=== PATIENT | female | born 1995 | race African-American/Black ===

== ENCOUNTER 2021-09-25 11:07 | Inpatient (IN) | payer OTHER ==
[2021-09-25] MEDS ORDERED: NICOTINE 10 MG CARTRIDGE (INHALER) IH PRN (11:31)
[2021-09-25] MEDS ORDERED: MAGNESIUM CITRATE 300 ML BOTTLE PO PRN (11:31)
[2021-09-25] MEDS ORDERED: ACETAMINOPHEN 325 MG TABLET (FP) PO PRN (11:31)
[2021-09-25] MEDS ORDERED: MAGNESIUM HYDROX 2400MG/30ML ORAL SUSPENSION 30 ML CUP PO PRN (11:31)
[2021-09-25] MEDS ORDERED: DICYCLOMINE HCL 10 MG CAPSULE PO PRN (11:31)
[2021-09-25] MEDS ORDERED: MAG HYDROX/AL HYDROX/SIMETH 30 ML UNIT-DOSE CUP PO PRN (11:31)
[2021-09-25] MEDS ORDERED: BENZOCAINE/MENTHOL (CHLORASEPTIC ) LOZENGE MM PRN (11:31)
[2021-09-25] MEDS ORDERED: LOPERAMIDE HCL 2 MG CAPSULE PO PRN (11:31)
[2021-09-25] MEDS ORDERED: ONDANSETRON *ODT* 4 MG TABLET SL PRN (11:31)
[2021-09-25] MEDS ORDERED: IBUPROFEN 400 MG TABLET (FP) PO PRN (11:31)
[2021-09-25] MEDS ORDERED: BISMUTH SUBSALICYLATE 262 MG/15 ML BTL PO PRN (11:31)
[2021-09-25 12:17] VITALS: BMI 23.0
[2021-09-25] MEDS: chlordiazePOXIDE HCL 25 MG CAPSULE PO PRN (14:28)
[2021-09-25] MEDS: hydrOXYzine PAMOATE 25 MG CAPSULE (FP) PO SCH ×3 (14:28→22:56)
[2021-09-25] MEDS: PRENATAL VITAMINS W/ FOLIC ACID TABLET (FP) PO SCH (14:28)
[2021-09-25] MEDS: METHOCARBAMOL 500 MG TABLET PO PRN (14:28)
[2021-09-25 15:00] LABS: HEMATOCRIT 35.6 % (32.4-45.2); MCHC 30.9 g/dl (32.0-36.0); MEAN CELL VOLUME 63.5 fl (80-96); MEAN PLT VOLUME 8.8 fl (7.5-11.1); PLATELET COUNT 348 10^3/uL (134-434); RBC 5.61 M/mm3 (3.60-5.2); RDW 16.1 % (11.6-15.6); WHITE BLOOD COUNT 10.6 K/mm3 (4.0-10.0)
[2021-09-25 15:03] LABS: MCH 19.6 pg (25.7-33.7)
[2021-09-25 15:14] LABS: BLOOD UREA NITROGEN 6.6 mg/dL (7-18); CALCIUM 9.2 mg/dL (8.5-10.1)
[2021-09-25 15:17] LABS: CREATININE 0.7 mg/dL (0.55-1.3)
[2021-09-25 15:19] LABS: BILIRUBIN,TOTAL 0.7 mg/dL (0.2-1); TOT PROT 8.1 g/dl (6.4-8.2)
[2021-09-25] MEDS: chlordiazePOXIDE HCL 25 MG CAPSULE PO SCH ×2 (19:34→22:06)
[2021-09-25] MEDS: MELATONIN 5 MG TABLETS PO SCH (22:55)
[2021-09-25] MEDS: THIAMINE HCL 100 MG TABLET (FP) PO SCH (22:55)
[2021-09-25] MEDS: levETIRAcetam XR 500 MG TAB PO SCH (22:56)
[2021-09-26] MEDS: chlordiazePOXIDE HCL 25 MG CAPSULE PO SCH ×4 (05:25→22:48)
[2021-09-26] MEDS: hydrOXYzine PAMOATE 25 MG CAPSULE (FP) PO SCH ×5 (05:25→21:57)
[2021-09-26] MEDS: PRENATAL VITAMINS W/ FOLIC ACID TABLET (FP) PO SCH (10:13)
[2021-09-26] MEDS: METHOCARBAMOL 500 MG TABLET PO PRN (10:13)
[2021-09-26] MEDS: MELATONIN 5 MG TABLETS PO SCH (21:56)
[2021-09-26] MEDS: THIAMINE HCL 100 MG TABLET (FP) PO SCH (21:56)
[2021-09-26] MEDS: levETIRAcetam XR 500 MG TAB PO SCH (21:57)
[2021-09-27] MEDS: chlordiazePOXIDE HCL 25 MG CAPSULE PO SCH ×4 (05:28→22:14)
[2021-09-27] MEDS: hydrOXYzine PAMOATE 25 MG CAPSULE (FP) PO SCH ×5 (05:28→22:15)
[2021-09-27] MEDS: PRENATAL VITAMINS W/ FOLIC ACID TABLET (FP) PO SCH (10:18)
[2021-09-27] MEDS: FERROUS SO4 325 MG TABLET (FP) PO SCH (10:18)
[2021-09-27] MEDS ORDERED: DICYCLOMINE HCL 10 MG CAPSULE PO ONE (10:30)
[2021-09-27 14:08] LABS: SARS-CoV-2 NAA Not Detected (Not Detected)
[2021-09-27] MEDS: chlordiazePOXIDE HCL 25 MG CAPSULE PO PRN (14:10)
[2021-09-27 19:20] LABS: PH,URINE 7.5 (5.0-8.0); URINE APPEARANCE CLEAR; URINE BILIRUBIN NEGATIVE (NEGATIVE); URINE COLOR YELLOW; URINE GLUCOSE (UA) NEGATIVE (NEGATIVE); URINE KETONE NEGATIVE (NEGATIVE); URINE LEUK ESTERASE NEGATIVE (NEGATIVE); URINE NITRITE NEGATIVE (NEGATIVE); URINE PROTEIN NEGATIVE (NEGATIVE); URINE UROBILINOGEN 0.2 mg/dL (0.2-1.0)
[2021-09-27 19:22] LABS: EPI CELLS 22 /uL (0-25.1); HYALINE CASTS 1 /uL (0-3.1); URINE BACTERIA 328 /uL (0-1359); URINE RBC 1 /uL (0-23.9); URINE WBC 7 /uL (0-25.8)
[2021-09-27] MEDS: THIAMINE HCL 100 MG TABLET (FP) PO SCH (22:15)
[2021-09-27] MEDS: MELATONIN 5 MG TABLETS PO SCH (22:15)
[2021-09-27] MEDS: levETIRAcetam XR 500 MG TAB PO SCH (22:15)
[2021-09-28] MEDS ORDERED: chlordiazePOXIDE HCL 10 MG CAPSULE PO PRN
[2021-09-28] MEDS: hydrOXYzine PAMOATE 25 MG CAPSULE (FP) PO SCH ×5 (06:03→22:40)
[2021-09-28] MEDS: chlordiazePOXIDE HCL 10 MG CAPSULE PO SCH ×4 (06:03→22:40)
[2021-09-28] MEDS: ACETAMINOPHEN 325 MG TABLET (FP) PO PRN (06:05)
[2021-09-28] MEDS: PRENATAL VITAMINS W/ FOLIC ACID TABLET (FP) PO SCH (10:19)
[2021-09-28] MEDS: FERROUS SO4 325 MG TABLET (FP) PO SCH (10:20)
[2021-09-28] MEDS ORDERED: levETIRAcetam XR 500 MG TAB PO ONE (18:15)
[2021-09-28] MEDS ORDERED: PYRIDOXINE HCL (B-6) 50 MG TABLET (FP) PO SCH (22:00)
[2021-09-28] MEDS: THIAMINE HCL 100 MG TABLET (FP) PO SCH (22:39)
[2021-09-28] MEDS: levETIRAcetam XR 500 MG TAB PO SCH (22:40)
[2021-09-28] MEDS: MELATONIN 5 MG TABLETS PO SCH (22:40)
[2021-09-29] MEDS ORDERED: chlordiazePOXIDE HCL 10 MG CAPSULE PO SCH (05:00)
[2021-09-29] MEDS: hydrOXYzine PAMOATE 25 MG CAPSULE (FP) PO SCH (05:24)
[2021-09-29] MEDS: ACETAMINOPHEN 325 MG TABLET (FP) PO PRN (06:28)
[2021-09-29] MEDS ORDERED: chlordiazePOXIDE HCL 10 MG CAPSULE PO ONE (09:30)
[2021-09-29 09:35] VITALS: BP 125/71; PULSE 91; TEMP 97.1
[2021-09-30] MEDS ORDERED: chlordiazePOXIDE HCL 10 MG CAPSULE PO ONE (05:00)
== END 2021-09-29 09:58 | disposition home or self-care (01) | DRG 897 ==
LOC: YASAS 11:07 → Y6N 13:50
PROVIDERS: ADMIT Allergy & Immunology; ATTEND Allergy & Immunology
PROC: HZ2ZZZZ Detoxification Services for Substance Abuse Treatment (ICD-10-PCS; principal; 2021-09-25)
DX: F10.230 Alcohol dependence with withdrawal, uncomplicated (principal); F14.20 Cocaine dependence, uncomplicated; F12.20 Cannabis dependence, uncomplicated; F17.210 Nicotine dependence, cigarettes, uncomplicated; G40.909 Epilepsy, unspecified, not intractable, without status epilepticus
CPT/HCPCS: 36415; 80053; 80177; 81003; 81025; 82962; 85027; 86780; 87811; 93005; 93010; C9803-CS; U0003; U0005

== ENCOUNTER 2023-12-12 02:47 | Inpatient (IN) | payer OTHER ==
[2023-12-12 03:35] VITALS: BMI 23.5
[2023-12-12] MEDS ORDERED: MAGNESIUM HYDROX 2400MG/30ML ORAL SUSPENSION 30 ML CUP PO PRN (04:19)
[2023-12-12] MEDS ORDERED: BENZONATATE 200 MG CAPSULE PO PRN (04:19)
[2023-12-12] MEDS ORDERED: LOPERAMIDE HCL 2 MG CAPSULE PO PRN (04:19)
[2023-12-12] MEDS ORDERED: BISMUTH SUBSALICYLATE 524 MG/30 ML PO PRN (04:19)
[2023-12-12] MEDS ORDERED: POLYETHYLENE GLYCOL (HEALTHYLAX) 3350 17 GM PACKET PO PRN (04:19)
[2023-12-12] MEDS ORDERED: guaiFENesin 600 MG TABLET.ER (FP) PO PRN (04:19)
[2023-12-12] MEDS ORDERED: ONDANSETRON *ODT* 4 MG TABLET SL PRN (04:19)
[2023-12-12] MEDS ORDERED: BENZOCAINE/MENTHOL (CHLORASEPTIC ) LOZENGE MM PRN (04:19)
[2023-12-12] MEDS ORDERED: DICYCLOMINE HCL 10 MG CAPSULE PO PRN (04:19)
[2023-12-12] MEDS ORDERED: NALOXONE (NARCAN) HCL 4 MG/0.1 ML SPRAY NS PRN (04:19)
[2023-12-12] MEDS ORDERED: ACETAMINOPHEN 325 MG TABLET (FP) PO PRN (04:19)
[2023-12-12] MEDS ORDERED: NALOXONE HCL 0.4 MG/ML VIAL IM PRN (04:19)
[2023-12-12] MEDS ORDERED: MAG HYDROX/AL HYDROX/SIMETH 30 ML UNIT-DOSE CUP PO PRN (04:19)
[2023-12-12] MEDS ORDERED: cloNIDine HCL 0.1 MG TABLET ONE (07:33)
[2023-12-12] MEDS: cloNIDine HCL 0.1 MG TABLET PO ONE (07:34)
[2023-12-12] MEDS: IBUPROFEN 600 MG TABLET (FP) PO PRN (07:36)
[2023-12-12] MEDS ORDERED: IBUPROFEN 600 MG TABLET (FP) PO ONE (07:36)
[2023-12-12] MEDS ORDERED: levETIRAcetam 500 MG TABLET (FP) PO ONE (09:37)
[2023-12-12] MEDS ORDERED: PRENATAL VITAMINS W/ FOLIC ACID TABLET (FP) PO ONE (09:37)
[2023-12-12] MEDS: levETIRAcetam 500 MG TABLET (FP) PO SCH (09:44)
[2023-12-12] MEDS: PRENATAL VITAMINS W/ FOLIC ACID TABLET (FP) PO SCH (09:44)
[2023-12-12] MEDS: THIAMINE 100 MG TABLET PO SCH (21:28)
[2023-12-12] MEDS: MELATONIN 5 MG TABLETS PO SCH (21:28)
[2023-12-13 12:06] LABS: HEMATOCRIT 32.8 % (32.4-45.2); HEMOGLOBIN 10.2 GM/dL (10.7-15.3); MCH 20.5 pg (25.7-33.7); MCHC 31.1 g/dl (32.0-36.0); MEAN PLT VOLUME 8.3 fl (7.5-11.1); PLATELET COUNT 428 10^3/uL (134-434); POTASSIUM 4.2 mmol/L (3.5-5.1); RBC 4.96 M/mm3 (3.60-5.2); RDW 15.9 % (11.6-15.6); WHITE BLOOD COUNT 5.6 K/mm3 (4.0-10.0)
[2023-12-13 12:14] LABS: ALBUMIN 3.3 g/dl (3.4-5.0); BLOOD UREA NITROGEN 6.2 mg/dL (7-18); CALCIUM 8.9 mg/dL (8.5-10.1)
[2023-12-13 12:17] LABS: CREATININE 0.6 mg/dL (0.55-1.3)
[2023-12-13 12:18] LABS: TOT PROT 7.8 g/dl (6.4-8.2)
[2023-12-13 12:20] LABS: BILIRUBIN,TOTAL 0.3 mg/dL (0.2-1)
[2023-12-14] MEDS: METHOCARBAMOL 500 MG TABLET PO PRN (06:06)
[2023-12-14] MEDS: hydrOXYzine PAMOATE 25 MG CAPSULE (FP) PO PRN (06:06)
[2023-12-14] MEDS: BENZOCAINE 20 % GEL TUBE MM PRN (13:36)
[2023-12-15] MEDS: IBUPROFEN 400 MG TABLET (FP) PO PRN (19:06)
[2023-12-16 06:39] VITALS: BP 143/89; PULSE 18; RESP 98; TEMP 97.7
== END 2023-12-16 10:52 | disposition home or self-care (01) | DRG 772 ==
LOC: YASAS 02:47 → Y3NR 12:56 → Y5N 14:56
PROVIDERS: ADMIT Allergy & Immunology; ATTEND Psychiatry & Neurology Pain Medicine
PROC: HZ42ZZZ Group Counseling for Substance Abuse Treatment, Cognitive-Behavioral (ICD-10-PCS; principal; 2023-12-12)
DX: F10.20 Alcohol dependence, uncomplicated (principal); F14.20 Cocaine dependence, uncomplicated; F12.20 Cannabis dependence, uncomplicated; F17.210 Nicotine dependence, cigarettes, uncomplicated; F10.280 Alcohol dependence with alcohol-induced anxiety disorder; G40.909 Epilepsy, unspecified, not intractable, without status epilepticus; Z86.11 Personal history of tuberculosis
CPT/HCPCS: 36415; 71046-TC-FY; 80053; 80305; 80307; 81025; 85027; 86780; 87811; 93005; 93010